=== PATIENT | female | born 1990 | race Caucasian/White ===

== ENCOUNTER 2021-05-30 16:00 | Inpatient (IN) | payer OTHER ==
[2021-05-30] MEDS: DEXTROSE 5%-LACTATED RINGERS 1,000 ML IV SCH (16:45)
[2021-05-30] MEDS ORDERED: AMPICILLIN - 2 GM in SODIUM CHLORIDE 100 ML IVPB ONE (17:00)
[2021-05-30] MEDS ORDERED: AMPICILLIN SODIUM 2 GM VIAL ONE (17:01)
[2021-05-30 17:33] LABS: BASO % 0.6 % (0-2.0); EOS % 0.2 % (0-4.5); HEMATOCRIT 35.3 % (32.4-45.2); HEMOGLOBIN 12.1 GM/dL (10.7-15.3); LYMPH % 14.1 % (8-40); MCH 29.5 pg (25.7-33.7); MCHC 34.3 g/dl (32.0-36.0); MEAN PLT VOLUME 9.1 fl (7.5-11.1); MONO % 4.4 % (3.8-10.2); NEUT % 80.7 % (42.8-82.8); PLATELET COUNT 168 10^3/uL (134-434); RBC 4.11 M/mm3 (3.60-5.2); RDW 14.5 % (11.6-15.6); WHITE BLOOD COUNT 13.9 K/mm3 (4.0-10.0)
[2021-05-30 17:41] LABS: INR 0.92 (0.83-1.09); PROTHROMBIN TIME (PATIENT) 10.3 SEC (9.7-13.0)
[2021-05-30 17:44] LABS: ACTIVATED PTT 27.2 SECONDS (25.2-36.5)
[2021-05-30 17:45] LABS: CALCIUM 8.9 mg/dL (8.5-10.1)
[2021-05-30] MEDS ORDERED: OXYTOCIN 30 UNITS in 0.9% NS 30 UNIT/500 ML INFUS.BAG IVPB SCH (17:45)
[2021-05-30 17:46] LABS: BLOOD UREA NITROGEN 12.5 mg/dL (7-18)
[2021-05-30 17:50] LABS: CREATININE 0.5 mg/dL (0.55-1.3)
[2021-05-30 18:04] VITALS: BMI 33.0
[2021-05-30] MEDS ORDERED: PROMETHAZINE HCL 25 MG/1 ML VIAL IVPUSH ONE (21:16)
[2021-05-30] MEDS ORDERED: BUTORPHANOL TARTRATE 1 MG/ML VIAL IVPB ONE (21:16)
[2021-05-30] MEDS ORDERED: AMPICILLIN SODIUM 1 GM VIAL ONE (22:54)
[2021-05-30] MEDS: AMPICILLIN - 1 GM in SODIUM CHLORIDE 100 ML IVPB SCH (23:00)
[2021-05-30] MEDS ORDERED: OXYTOCIN 30 UNITS in 0.9% NS 30 UNIT/500 ML INFUS.BAG IVPB ONE (23:58)
[2021-05-31] MEDS: DEXTROSE 5%-LACTATED RINGERS 1,000 ML IV SCH ×2 (01:00→09:30)
[2021-05-31] MEDS ORDERED: AMPICILLIN SODIUM 1 GM VIAL ONE ×5 (02:56→18:39)
[2021-05-31] MEDS: AMPICILLIN - 1 GM in SODIUM CHLORIDE 100 ML IVPB SCH ×5 (03:00→18:46)
[2021-05-31] MEDS ORDERED: FENTANYL/BUPIVACAINE/NS/PF - PCEA - 50 ML DISP.SYRIN EP ONE ×2 (13:48→19:30)
[2021-05-31] MEDS ORDERED: PCA PUMP NR ONE ×2 (13:49→19:30)
[2021-05-31] MEDS ORDERED: ONDANSETRON 4 MG/2 ML VIAL ONE (14:26)
[2021-05-31] MEDS: ELECTROLYTE-148 SOLN 1,000 ML IV SCH (14:30)
[2021-05-31] MEDS: FENTANYL/BUPIVACAINE/NS/PF - PCEA - 50 ML DISP.SYRIN EP SCH (14:40)
[2021-05-31] MEDS ORDERED: NALOXONE HCL 0.4 MG/ML VIAL IVPUSH PRN (15:34)
[2021-06-01] MEDS ORDERED: ONDANSETRON 4 MG/2 ML VIAL ONE (00:03)
[2021-06-01] MEDS ORDERED: ePHEDrine SULFATE 50 MG/1 ML AMPULE ONE (00:03)
[2021-06-01] MEDS ORDERED: morphine SULFATE (PF) 1 MG/2 ML SYRINGE ONE ×3 (00:03)
[2021-06-01] MEDS ORDERED: ceFAZolin SODIUM 1 GM VIAL ONE (00:03)
[2021-06-01] MEDS ORDERED: KETOROLAC TROMETHAMINE 30 MG/1 ML VIAL ONE (00:03)
[2021-06-01] MEDS ORDERED: SODIUM CHLORIDE 0.9% P/F 10 ML VIAL IJ ONE (00:03)
[2021-06-01] MEDS ORDERED: OXYTOCIN 20 UNITS in 0.9% NS 20 UNIT/1,000 ML INFUS.BAG IV ONE (00:21)
[2021-06-01] MEDS ORDERED: DEXAMETHASONE SOD PHOSPHATE 4 MG/1 ML VIAL ONE (01:28)
[2021-06-01] MEDS ORDERED: oxyCODONE HCL 5 MG TABLET PO PRN (01:47)
[2021-06-01] MEDS ORDERED: METHYLERGONOVINE MALEATE 0.2 MG/1 ML AMP IM PRN (01:47)
[2021-06-01] MEDS ORDERED: WITCH HAZEL 50% (TUCKS) 40 PAD/JAR PAD TP PRN (01:47)
[2021-06-01] MEDS ORDERED: BENZOCAINE 28 GM HEMORRHOIDAL OINTMENT TP PRN (01:47)
[2021-06-01] MEDS ORDERED: BENZOCAINE 20% 57 GM BOTTLE TP PRN (01:47)
[2021-06-01] MEDS ORDERED: IBUPROFEN 800 MG/8 ML IJ IVPB PRN (01:47)
[2021-06-01] MEDS ORDERED: ONDANSETRON 4 MG/2 ML VIAL IVPUSH PRN (01:57)
[2021-06-01] MEDS ORDERED: OXYTOCIN 20 UNITS in 0.9% NS 20 UNIT/1,000 ML INFUS.BAG IV SCH (02:00)
[2021-06-01 02:11] LABS: CORD BASE EXCESS -2.8 mmol/L (0-2); CORD HCO3 23.6 mmHg (20-29); CORD PCO2 46.4 mmHg (30-78); CORD pH 7.324 (7.14-7.44)
[2021-06-01 02:16] LABS: CORD HCO3 24.4 mmHg (20-29); CORD PCO2 56.5 mmHg (30-78); CORD pH 7.254 (7.14-7.44)
[2021-06-01] MEDS: AMPICILLIN - 1 GM in SODIUM CHLORIDE 100 ML IVPB SCH (04:13)
[2021-06-01] MEDS: ACETAMINOPHEN 1000 MG/100 ML VIAL IVPB SCH ×2 (05:58→07:58)
[2021-06-01] MEDS: PRENATAL VITAMINS W/ FOLIC ACID TABLET (FP) PO SCH (10:11)
[2021-06-01] MEDS: IBUPROFEN 600 MG TABLET (FP) PO PRN ×2 (14:43→23:07)
[2021-06-01] MEDS: SIMETHICONE 80 MG TAB.CHEW (FP) PO PRN (14:43)
[2021-06-01 16:07] LABS: POC NITRAZINE POS
[2021-06-01] MEDS: FENTANYL/BUPIVACAINE/NS/PF - PCEA - 50 ML DISP.SYRIN EP SCH (20:17)
[2021-06-01 22:30] LABS: HIV INTERPRETATION NEGATIVE (NEGATIVE)
[2021-06-02] MEDS ORDERED: BISACODYL 10 MG SUPP.RECT RC PRN (01:47)
[2021-06-02 06:20] LABS: BASO % 0.5 % (0-2.0); EOS % 0.5 % (0-4.5); HEMOGLOBIN 10.2 GM/dL (10.7-15.3); LYMPH % 17.4 % (8-40); MCH 29.9 pg (25.7-33.7); MCHC 33.9 g/dl (32.0-36.0); MEAN CELL VOLUME 88.2 fl (80-96); NEUT % 75.6 % (42.8-82.8); PLATELET COUNT 159 10^3/uL (134-434); RDW 14.8 % (11.6-15.6); WHITE BLOOD COUNT 12.2 K/mm3 (4.0-10.0)
[2021-06-02] MEDS: IBUPROFEN 600 MG TABLET (FP) PO PRN ×3 (08:59→21:53)
[2021-06-02] MEDS: SIMETHICONE 80 MG TAB.CHEW (FP) PO PRN ×3 (08:59→21:58)
[2021-06-02] MEDS: PRENATAL VITAMINS W/ FOLIC ACID TABLET (FP) PO SCH (11:39)
[2021-06-02] MEDS: ENOXAPARIN NA (PORCINE) 40 MG/0.4 ML DISP.SYRIN SQ SCH (11:40)
[2021-06-02] MEDS: FENTANYL/BUPIVACAINE/NS/PF - PCEA - 50 ML DISP.SYRIN EP SCH (20:14)
[2021-06-02] MEDS: SENNOSIDES/DOCUSATE COMBO (SENNA PLUS) TABLET (UD) PO PRN (21:58)
[2021-06-03] MEDS: IBUPROFEN 600 MG TABLET (FP) PO PRN ×3 (06:15→17:12)
[2021-06-03] MEDS: ENOXAPARIN NA (PORCINE) 40 MG/0.4 ML DISP.SYRIN SQ SCH (09:18)
[2021-06-03] MEDS: PRENATAL VITAMINS W/ FOLIC ACID TABLET (FP) PO SCH (09:24)
[2021-06-03] MEDS: SIMETHICONE 80 MG TAB.CHEW (FP) PO PRN ×2 (11:23→17:12)
[2021-06-03] MEDS: ELECTROLYTE-148 SOLN 1,000 ML IV SCH (17:00)
[2021-06-03] MEDS: DEXTROSE 5%-LACTATED RINGERS 1,000 ML IV SCH (20:16)
[2021-06-04] MEDS: IBUPROFEN 600 MG TABLET (FP) PO PRN ×2 (00:24→08:55)
[2021-06-04] MEDS: SIMETHICONE 80 MG TAB.CHEW (FP) PO PRN ×2 (00:24→08:55)
[2021-06-04] MEDS: SENNOSIDES/DOCUSATE COMBO (SENNA PLUS) TABLET (UD) PO PRN (00:25)
[2021-06-04 06:07] LABS: BASO % 0.5 % (0-2.0); HEMATOCRIT 29.8 % (32.4-45.2); HEMOGLOBIN 10.2 GM/dL (10.7-15.3); LYMPH % 20.7 % (8-40); MCH 29.7 pg (25.7-33.7); MCHC 34.2 g/dl (32.0-36.0); MEAN CELL VOLUME 86.9 fl (80-96); MEAN PLT VOLUME 8.6 fl (7.5-11.1); MONO % 6.5 % (3.8-10.2); NEUT % 69.3 % (42.8-82.8); PLATELET COUNT 173 10^3/uL (134-434); RBC 3.43 M/mm3 (3.60-5.2); WHITE BLOOD COUNT 9.6 K/mm3 (4.0-10.0)
[2021-06-04 09:27] VITALS: BP 146/89; PULSE 77; TEMP 98.6
[2021-06-04] MEDS: PRENATAL VITAMINS W/ FOLIC ACID TABLET (FP) PO SCH (11:16)
[2021-06-04] MEDS: ENOXAPARIN NA (PORCINE) 40 MG/0.4 ML DISP.SYRIN SQ SCH (11:17)
== END 2021-06-04 12:20 | disposition home or self-care (01) | DRG 788 ==
LOC: JLDR 16:00 → J3W 06-01 04:06
PROVIDERS: ADMIT Obstetrics & Gynecology; ATTEND Obstetrics & Gynecology
PROC: 10D00Z1 Extraction of Products of Conception, Low, Open Approach (ICD-10-PCS; principal; 2021-06-01)
DX: O48.0 Post-term pregnancy (principal); O62.1 Secondary uterine inertia; Z3A.40 40 weeks gestation of pregnancy; Z37.0 Single live birth; Z53.29 Procedure and treatment not carried out because of patient's decision for other reasons
CPT/HCPCS: 36415; 36600; 80048; 82803; 83986-QW; 85025; 85461; 85610; 85730; 86780; 86850; 86900; 86901; 86999; 87389; C9803; J0131; U0003; U0005

== ENCOUNTER 2022-02-17 20:42 | Emergency (ER) | payer BC, OTHER ==
[2022-02-17 21:07] VITALS: BMI 23.0
[2022-02-17] MEDS ORDERED: ACETAMINOPHEN 325 MG TABLET (FP) PO ONE (21:37)
[2022-02-17] MEDS ORDERED: SODIUM CHLORIDE 0.9% 500 ML INFUS.BAG IV ONE (21:39)
[2022-02-17] MEDS ORDERED: ACETAMINOPHEN 325 MG TABLET (FP) ONE (22:09)
[2022-02-18] MEDS ORDERED: BEBTELOVIMAB (EUA) 175 MG/2 ML VIAL IVPUSH ONE (02:00)
[2022-02-18 02:07] VITALS: TEMP 99.6
[2022-02-18 02:56] VITALS: BP 138/68; PULSE 109
[2022-02-18] MEDS ORDERED: ACETAMINOPHEN 325 MG TABLET (FP) PO ONE (03:15)
[2022-02-18] MEDS ORDERED: ACETAMINOPHEN 325 MG TABLET (FP) ONE (03:17)
== END 2022-02-18 04:04 | disposition home or self-care (01) ==
LOC: JER 20:42
PROC: 3E033NZ Introduction of Analgesics, Hypnotics, Sedatives into Peripheral Vein, Percutaneous Approach (ICD-10-PCS; principal; 2022-02-18)
DX: O98.512 Other viral diseases complicating pregnancy, second trimester (principal); U07.1 COVID-19
CPT/HCPCS: 0241U-QW; 76815; 96374; 99284-25; M0222; Q0222

== ENCOUNTER 2022-06-06 06:00 | Inpatient (IN) | payer BC ==
[2022-06-06] MEDS ORDERED: ELECTROLYTE-148 SOLN 1,000 ML IV SCH (08:15)
[2022-06-06] MEDS ORDERED: OXYTOCIN 30 UNITS in 0.9% NS 30 UNIT/500 ML INFUS.BAG IVPB ONE (08:19)
[2022-06-06] MEDS ORDERED: ONDANSETRON 4 MG/2 ML VIAL ONE (08:20)
[2022-06-06] MEDS ORDERED: ceFAZolin SODIUM 1 GM VIAL ONE (08:20)
[2022-06-06] MEDS ORDERED: morphine SULFATE (PF) 1 MG/2 ML SYRINGE ONE (08:20)
[2022-06-06] MEDS ORDERED: METOCLOPRAMIDE HCL INJECTION 10 MG/2 ML VIAL ONE (08:20)
[2022-06-06] MEDS ORDERED: PHENYLEPHRINE HCL 10 MG/1 ML SINGLE DOSE VIAL ONE (08:20)
[2022-06-06] MEDS ORDERED: morphine SULFATE/PF 1 MG/2 ML (2cc Syringe - QUVA) IT ONE (08:42)
[2022-06-06 09:06] VITALS: BMI 35.1
[2022-06-06] MEDS ORDERED: KETOROLAC TROMETHAMINE 30 MG/1 ML VIAL ONE (09:17)
[2022-06-06] MEDS ORDERED: CITRIC ACID/SODIUM CITRATE 30 ML UNIT-DOSE CUP PO ONE (09:40)
[2022-06-06] MEDS ORDERED: METHYLERGONOVINE MALEATE 0.2 MG/1 ML AMP IM PRN (09:40)
[2022-06-06] MEDS ORDERED: IBUPROFEN 800 MG/8 ML IJ IVPB PRN ×2 (09:40→10:17)
[2022-06-06] MEDS ORDERED: ACETAMINOPHEN 325 MG TABLET (FP) PO PRN (09:40)
[2022-06-06] MEDS ORDERED: BENZOCAINE 20% 57 GM BOTTLE TP PRN (09:40)
[2022-06-06] MEDS ORDERED: BENZOCAINE 28 GM HEMORRHOIDAL OINTMENT TP PRN (09:40)
[2022-06-06] MEDS ORDERED: WITCH HAZEL 50% (TUCKS) 40 PAD/JAR PAD TP PRN (09:40)
[2022-06-06] MEDS ORDERED: ONDANSETRON 4 MG/2 ML VIAL IVPUSH PRN (10:04)
[2022-06-06] MEDS ORDERED: OXYTOCIN 20 UNITS in 0.9% NS 20 UNIT/1,000 ML INFUS.BAG IV ONE ×2 (10:40→18:24)
[2022-06-06] MEDS: OXYTOCIN 20 UNITS in 0.9% NS 20 UNIT/1,000 ML INFUS.BAG IV SCH ×2 (10:55→18:54)
[2022-06-06] MEDS: IBUPROFEN 600 MG TABLET (FP) PO PRN ×2 (13:12→19:34)
[2022-06-06] MEDS: SIMETHICONE 80 MG TAB.CHEW (FP) PO PRN (19:34)
[2022-06-06] MEDS ORDERED: oxyCODONE HCL 5 MG TABLET PO PRN ×2 (21:40)
[2022-06-07] MEDS: SIMETHICONE 80 MG TAB.CHEW (FP) PO PRN ×4 (01:32→23:31)
[2022-06-07] MEDS: IBUPROFEN 600 MG TABLET (FP) PO PRN ×6 (01:32→23:31)
[2022-06-07 07:38] LABS: BASO % 0.4 % (0-2.0); EOS % 0.7 % (0-4.5); HEMATOCRIT 31.5 % (32.4-45.2); HEMOGLOBIN 10.3 GM/dL (10.7-15.3); LYMPH % 13.4 % (8-40); MCH 28.9 pg (25.7-33.7); MCHC 32.7 g/dl (32.0-36.0); MEAN CELL VOLUME 88.3 fl (80-96); MEAN PLT VOLUME 8.8 fl (7.5-11.1); MONO % 5.6 % (3.8-10.2); NEUT % 79.9 % (42.8-82.8); PLATELET COUNT 165 10^3/uL (134-434); RBC 3.57 M/mm3 (3.60-5.2); RDW 15.5 % (11.6-15.6); WHITE BLOOD COUNT 11.9 K/mm3 (4.0-10.0)
[2022-06-07] MEDS ORDERED: BISACODYL 10 MG SUPP.RECT RC PRN (09:40)
[2022-06-07] MEDS: ENOXAPARIN NA (PORCINE) 40 MG/0.4 ML DISP.SYRIN SQ SCH (10:43)
[2022-06-07] MEDS: SENNOSIDES/DOCUSATE COMBO (SENNA PLUS) TABLET (UD) PO PRN (23:31)
[2022-06-08] MEDS: IBUPROFEN 600 MG TABLET (FP) PO PRN ×5 (03:25→20:31)
[2022-06-08] MEDS: SIMETHICONE 80 MG TAB.CHEW (FP) PO PRN ×3 (03:25→20:31)
[2022-06-08] MEDS: ENOXAPARIN NA (PORCINE) 40 MG/0.4 ML DISP.SYRIN SQ SCH (09:31)
[2022-06-08] MEDS: SENNOSIDES/DOCUSATE COMBO (SENNA PLUS) TABLET (UD) PO PRN (20:31)
[2022-06-08 23:03] VITALS: RESP 18
[2022-06-09] MEDS: IBUPROFEN 600 MG TABLET (FP) PO PRN ×2 (00:13→07:08)
[2022-06-09] MEDS: SIMETHICONE 80 MG TAB.CHEW (FP) PO PRN (07:08)
[2022-06-09] MEDS: ENOXAPARIN NA (PORCINE) 40 MG/0.4 ML DISP.SYRIN SQ SCH (09:18)
[2022-06-09 10:01] VITALS: BP 124/73; PULSE 56; TEMP 98.5
[2022-06-09 11:28] LABS: BASO % 0.4 % (0-2.0); EOS % 2.4 % (0-4.5); HEMATOCRIT 33.1 % (32.4-45.2); HEMOGLOBIN 11.2 GM/dL (10.7-15.3); LYMPH % 17.7 % (8-40); MCH 29.6 pg (25.7-33.7); MCHC 33.7 g/dl (32.0-36.0); MEAN PLT VOLUME 9.1 fl (7.5-11.1); NEUT % 75.5 % (42.8-82.8); PLATELET COUNT 193 10^3/uL (134-434); RBC 3.77 M/mm3 (3.60-5.2); RDW 15.3 % (11.6-15.6); WHITE BLOOD COUNT 9.4 K/mm3 (4.0-10.0)
== END 2022-06-09 14:07 | disposition home or self-care (01) | DRG 788 ==
LOC: JLDR 06:00 → J3W 11:41
PROVIDERS: ADMIT Obstetrics & Gynecology; ATTEND Obstetrics & Gynecology
PROC: 10D00Z1 Extraction of Products of Conception, Low, Open Approach (ICD-10-PCS; principal; 2022-06-06)
DX: O34.211 Maternal care for low transverse scar from previous cesarean delivery (principal); Z3A.39 39 weeks gestation of pregnancy; Z37.0 Single live birth
CPT/HCPCS: 36415; 85025; 85461; 86999; 88307-TC